=== PATIENT | female | born 1960 | race Caucasian/White ===

== ENCOUNTER → 2019-02-12 | Outpatient (CLI) | payer BC ==
[2019-02-13 10:23] LABS: APPEARANCE, URINE HAZY (CLEAR); BACTERIA, URINE AUTO NEGATIVE (NEGATIVE); BILIRUBIN, URINE AUTO NEGATIVE (NEGATIVE); BLOOD, URINE BLOOD NEGATIVE (NEGATIVE); COLOR, URINE YELLOW (YELLOW); GLUCOSE, URINE (UA) AUTO NEGATIVE (NEGATIVE); KETONE, URINE AUTO NEGATIVE (NEGATIVE); LEUKOCYTE ESTERASE, URINE AUTO NEGATIVE (NEGATIVE); MUCUS, URINE SMALL (NEGATIVE); NITRITE, URINE AUTO NEGATIVE (NEGATIVE); PROTEIN, URINE AUTO NEGATIVE (NEGATIVE); RBC, URINE AUTO 0 /HPF (0-3); SPECIFIC GRAVITY URINE AUTO 1.018 (1.002-1.035); SQUAMOUS EPITHELIAL CELL UR AU 0 /HPF (0-6); UROBILINOGEN, URINE AUTO 0.2 mg/dL (0.0-2.0); WBC, URINE AUTO 2 /HPF (0-3)
[2019-02-13 10:23] LABS: GLOMERULAR FILTRATION RATE > 60.0 (>45)
[2019-02-13 11:01] LABS: MALB URINE SIEMENS 15.8 MG/L; MAU/CREAT RATIO 8.1 MCG/MG (0.0-30.0)
[2019-02-13 17:12] LABS: CREATININE CLEARANCE, URINE 90.6 ML/MIN (75-115); CREATININE, SERUM 0.9 MG/DL (0.6-1.0); CREATININE, URINE 67.1 MG/DL; TOTAL PROTEIN 24 HOUR URINE 138.2 MG/24HR (50-150); URINE TOTAL PROTEIN 7.9 MG/DL (0-12)
== END ==
LOC: M SMT 13:20
PROVIDERS: ATTEND Internal Medicine Nephrology
DX: Z00.5 Encounter for examination of potential donor of organ and tissue (principal)

== ENCOUNTER → 2019-09-08 | Outpatient (CLI) | payer BC ==
--- NOTE | 2019-09-08 08:32 | REP ---
Clinical: Follow up abnormal lung findings. Technique: Axial noncontrast images from the thoracic inlet to the upper abdomen with coronal and sagittal re-formations. Comparison: 05/28/2019. Findings: Areas of consolidation involving the right middle lobe and lingula with mild chronic-appearing linear stranding and bronchiectasis with inspissated material leading up to the consolidations is most compatible with chronic atelectasis due to mucous plugging. Remainder of lung ugarte are clear and no further acute process is appreciated. No effusion. No pneumothorax. No significant adenopathy. Mediastinum demonstrates normal thoracic aorta, pulmonary vasculature and heart/pericardium. Surrounding musculoskeletal structures are intact. Limited upper abdomen demonstrates normal bilateral adrenal glands along with cholelithiasis. Impression: 1. Areas of consolidation with associated changes as described above most compatible with chronic atelectasis due to mucous plugging. Correlation with physical examination and follow-up examination in 6-9 months may be warranted. Electronically Signed by Manuel Zimmerman MD 09/08/2019 08:24 A
== END ==
LOC: M RAD 07:29
PROVIDERS: ATTEND Internal Medicine Pulmonary Disease
DX: R91.8 Other nonspecific abnormal finding of lung field (principal)

== ENCOUNTER 2019-09-16 06:01 | Day surgery (SDC) | payer BC ==
[~2019-09-16] VITALS: Ht 157.5 cm; Wt 76.1 kg
[~2019-09-16 06:01] MED LIST: LR 1,000 ML IV ONE
[2019-09-16] MEDS ORDERED: fentaNYL 100 MCG/2 ML INJECTION (J3010) As Ordered ONE (07:13)
[2019-09-16] MEDS ORDERED: LIDOCAINE 2% INJ 100 MG/5 ML SDV (FOR ANES.) As Ordered ONE (07:13)
[2019-09-16] MEDS ORDERED: propofoL 200 MG/20 ML VIAL As Ordered ONE (07:13)
[2019-09-16] MEDS ORDERED: LIDOCAINE 1% MDV 20ML VIAL As Ordered ONE (07:13)
[2019-09-16] MEDS ORDERED: MIDAZOLAM INJ 2 MG/2 ML VIAL (J2250) As Ordered ONE (07:13)
[2019-09-16] MEDS ORDERED: THROMBIN SOLN 5,000 UNITS VIAL As Ordered ONE (07:13)
[2019-09-16] MEDS ORDERED: ROCURONIUM BROMIDE 50 MG/5 ML VIAL As Ordered ONE (07:13)
[2019-09-16] MEDS ORDERED: EPINEPHrine 1MG/10ML SYRINGE 1.5IN As Ordered ONE (07:13)
[2019-09-16] MEDS ORDERED: LIDOCAINE VISCOUS 2% SOLN 15ML UDC As Ordered ONE (07:14)
[2019-09-16] MEDS ORDERED: CETACAINE SPRAY 5GM As Ordered ONE ×2 (07:16→08:39)
[2019-09-16] MEDS ORDERED: dexameTHASONE 4 MG/ML 1ML VIAL (J1100) As Ordered ONE (07:44)
[2019-09-16] MEDS ORDERED: METOCLOPRAMIDE INJ 10MG/2ML VIAL (J2765) As Ordered ONE (07:55)
[2019-09-16] MEDS ORDERED: ONDANSETRON 4MG/2ML VIAL (J2405) As Ordered ONE (07:55)
[2019-09-16] MEDS ORDERED: GLYCOPYRROLATE INJ 0.2 MG/ML 2 ML VIAL As Ordered ONE (08:31)
[2019-09-16] MEDS ORDERED: NEOSTIGMINE 10 MG/10 ML VIAL (J2710) As Ordered ONE (08:31)
[2019-09-16] MEDS ORDERED: LR 1,000 ML IV SCH (09:30)
[2019-09-16] MEDS ORDERED: ONDANSETRON 4MG/2ML VIAL (J2405) IV PRN (09:30)
[2019-09-16] MEDS ORDERED: METOCLOPRAMIDE INJ 10MG/2ML VIAL (J2765) IV PRN (09:30)
[2019-09-16] MEDS ORDERED: fentaNYL 100 MCG/2 ML INJECTION (J3010) IV PRN (09:30)
--- NOTE | 2019-09-16 09:51 | ROOR ---
Patient Name: Domi Jalloh Procedure Date: 09/16/2019 7:26 AM Date of : 1960 Admit Type: Outpatient Age: 59 Note Status: Finalized Attending MD: Araceli Acosta MD Procedure: Bronchoscopy Indications: Suspicious left upper lobe lesion, Suspicious right middle lobe lesion Providers: Araceli Acosta MD (Doctor) Referring MD: 1. No Referring Physician 1. No Referring Physician, Admin. (Referring MD) Requesting Physician: Medicines: General Anesthesia, Epinephrine 1 mg/10 mL topical 1 mL, Cetacaine topical Complications: Moderate bleeding Procedure: Pre-Anesthesia Assessment: - Prior to the procedure, a History and Physical was performed, and patient medications and allergies were reviewed. The patient's tolerance of previous anesthesia was also reviewed. The risks and benefits of the procedure and the sedation options and risks were discussed with the patient. All questions were answered, and informed consent was obtained. Prior Anticoagulants: The patient has taken no previous anticoagulant or antiplatelet agents. ASA Grade Assessment: II - A patient with mild systemic disease. After reviewing the risks and benefits, the patient was deemed in satisfactory condition to undergo the procedure. The Bronchoscope was introduced through the mouth, via the endotracheal tube (the patient was intubated for the procedure) and advanced to the tracheobronchial tree of both lungs. The procedure was accomplished without difficulty. The patient tolerated the procedure well. Findings: The endotracheal tube is in good position. The visualized portion of the trachea is of normal caliber. The elena is sharp. The tracheobronchial tree was examined to at least the first subsegmental level. Bronchial anatomy and mucosa was normal; there are no endobronchial lesions noted. There were thick white mucoid secretions noted throughout the bronchial tree on right and left. Electromagnetic navigation bronchoscopy utilizing the PEVESA system with iLogic upgrade was performed. The CT scan was used for planning purposes. A virtual bronchoscopic image was generated using the planning software and the elena, left main bronchus elena, left lower lobe basilar segment, right upper lobe, right middle lobe and right lower lobe basilar segment registration points were marked on the virtual image. The targets in the medial segment of the right middle lobe and in the superior lingula segment of the left upper lobe were marked. An area of infiltration was found and a pathway was created. After a complete airway exam, the locatable guide/extended working channel was inserted and an automatic registration was performed by advancing the scope through the elena, left main bronchus elena, left lower lobe basilar segment, right upper lobe, right middle lobe and right lower lobe basilar segment. The navigation phase was then begun to locate the target lesion(s). Positioning centrally (in relation to the lesion) was confirmed using the Olympus radial probe US catheter. The locatable guide was removed from the extended working channel. Fluoroscopy guided transbronchial brushings of an area of infiltration were obtained in the medial segment of the right middle lobe with a needle brush and sent for routine cytology. Transbronchial brushing technique was selected because the sampling site was not visible endoscopically. Transbronchial needle aspirations of an area of infiltration were performed in the medial segment of the right middle lobe GenCut and sent for routine cytology. The procedure was guided by fluoroscopy. Transbronchial needle aspiration technique was selected because the sampling site was not visible endoscopically. Transbronchial biopsies of an area of infiltration were performed in the medial segment of the right middle lobe using forceps and sent for histopathology examination. The procedure was guided by fluoroscopy. Transbronchial biopsy technique was selected because the sampling site was not visible endoscopically. Transbronchial needle aspirations of an area of infiltration were performed in the superior lingula segment of the left upper lobe GenCut and sent for routine cytology. The procedure was guided by fluoroscopy. Transbronchial needle aspiration technique was selected because the sampling site was not visible endoscopically. Transbronchial biopsies of an area of infiltration were performed in the superior lingula segment of the left upper lobe using forceps and sent for histopathology examination. The procedure was guided by fluoroscopy. Transbronchial biopsy technique was selected because the sampling site was not visible endoscopically. Bronchoalveolar lavage was performed in the RML medial segment (B5) of the lung and sent for cell count, bacterial culture, viral smears & culture, and fungal & AFB analysis and cytology. The return was blood-tinged and cloudy. Mucous plugs were present in the return fluid. Bronchoalveolar lavage was performed in the YOUNG superior lingular segment (B4) of the lung and sent for cell count, bacterial culture, viral smears & culture, and fungal & AFB analysis and cytology. The return was bloody. Bronchoalveolar lavage was performed in the LLL superior segment (B6) of the lung and sent for bacterial, AFB and fungal analysis. The return was clear. Bronchoalveolar lavage was performed in the RLL superior segment (B6) of the lung and sent for bacterial, AFB and fungal analysis. The return was cloudy. Impression: - Suspicious left upper lobe lesion - Suspicious right middle lobe lesion - The airway examination was normal except for thick white mucoid secretions noted in right and left airways - Electromagnetic navigation bronchoscopy was performed. - Transbronchial brushings were obtained in RML - A transbronchial needle aspiration was performed in RML - Transbronchial lung biopsies were performed in RML - A transbronchial needle aspiration was performed in YOUNG lingula - Transbronchial lung biopsies were performed in YOUNG lingula - Bronchoalveolar lavage was performed in RML - Bronchoalveolar lavage was performed YOUNG - Bronchoalveolar lavage was performed RLL - Bronchoalveolar lavage was performed LLL Recommendation: - Follow up with bronchoscopist as previously scheduled. - Chest X-ray post-procedure. Attending Participation: I personally performed the entire procedure. Araceli Acosta MD 09/16/2019 9:51:41 AM Number of Addenda: 0 Note Initiated On: 09/16/2019 7:26 AM
--- NOTE | 2019-09-16 10:01 | REP ---
PORTABLE CHEST X-RAY: Single view. HISTORY: Postop. COMPARISON CHEST X-RAY: May 07, 2019. Comparison chest CT study September 08, 2019. FINDINGS: There is a new moderate size lingular area of consolidation/hemorrhage. There is some infiltrate in the left upper lobe in the apex as well. Increased markings are again noted in the distribution of the right middle lobe as seen on CT study. IMPRESSION: Lingular and left upper lobe infiltrates, new from prior CT study. Right middle lobe opacity again seen. No pneumothorax seen. Electronically Signed by Casimiro Carranza MD 09/16/2019 07:27 P
[2019-09-16 10:45] VITALS: BP 111/61
[2019-09-16 13:05] LABS: COLOR PINK (COLORLESS); SOURCE RIGHT MIDDLE LOBE
[2019-09-16 13:06] LABS: APPEARANCE HAZY (CLEAR)
[2019-09-16 13:34] LABS: APPEARANCE CLOUDY (CLEAR); COLOR RED (COLORLESS); SOURCE LEFT UPPER LOBE
[2019-09-16 14:57] LABS: MONOCYTES/MACROPHAGES, BAL 36 %
[2019-09-16 14:58] LABS: MONOCYTES/MACROPHAGES, BAL 33 %
== END 2019-09-16 10:55 | disposition home or self-care (01) ==
LOC: M SDC 06:01
PROVIDERS: ATTEND Internal Medicine Pulmonary Disease
DX: R91.8 Other nonspecific abnormal finding of lung field (principal)
CPT/HCPCS: 31623; 31624; 31627; 31628; 31629; 71045; 76000; 87070; 87102; 87116; 87205; 87206; 88104; 88108; 88173; 88305; 88312; 88313; 88342; 89051; J1100; J2250; J2405; J2710; J2765; J3010

== ENCOUNTER → 2019-09-18 | Outpatient (CLI) | payer BC ==
--- NOTE | 2019-09-18 13:27 | REP ---
PA and lateral chest: Comparison is 09/16/2019. The infiltrates in the left upper lobe and lingula have significantly decreased, although slight residual persists. There is a tiny left pleural effusion. The right lung is clear. Cardiac size normal. The brenda, mediastinum, skeletal structures are unremarkable. Impression: Significant improvement in the left upper lobe and lingular infiltrates. Small residual persists. There is a small left pleural effusion. Electronically Signed by Ozzie Tubbs MD 09/18/2019 01:18 P
== END ==
LOC: M RAD 12:58
PROVIDERS: ATTEND Internal Medicine Pulmonary Disease
DX: R91.8 Other nonspecific abnormal finding of lung field (principal)

== ENCOUNTER → 2020-05-05 | Outpatient (CLI) | payer BC | LOC: M LAB 09:14 | PROVIDERS: ATTEND Internal Medicine Nephrology | DX: Z00.5 Encounter for examination of potential donor of organ and tissue (principal) ==

== ENCOUNTER → 2020-09-26 | Outpatient (CLI) | payer BC ==
--- NOTE | 2020-09-26 11:42 | REP ---
INDICATION: OTHER NONSPECIFIC ABNORMAL FINDING OF LUNG FIELD COMPARISON: 09/08/2019. TECHNIQUE: Axial noncontrast images from the thoracic inlet to the upper abdomen with coronal and sagittal reformations. This CT examination was performed using the following dose reduction techniques: Automated exposure control, adjustment of mA and/or kv according to the patient's size, and use of iterative reconstruction technique. FINDINGS: Chronic bronchiectasis, linear scarring, and ill-defined areas of opacity identified in the right middle lobe and lingula remain stable. Remainder of the lung ugarte are well aerated and clear. No new consolidation, suspicious nodule or mass lesion. No pleural effusion. No pneumothorax. Tracheobronchial tree is patent. No obvious adenopathy. Further evaluation of the mediastinum demonstrates normal thoracic aorta, pulmonary vasculature, and heart/pericardium. Surrounding musculoskeletal structures without acute osseous abnormality. Limited upper abdomen demonstrates normal bilateral adrenal glands. IMPRESSION: 1. Chronic changes extending into the right middle lobe and lingula similar to prior examination. 2. No new acute mediastinal or pleuroparenchymal process appreciated. <Electronically signed by Manuel Zimmerman > 09/26/20 [id number]
== END ==
LOC: M RAD 11:09
PROVIDERS: ATTEND Internal Medicine Pulmonary Disease
DX: R91.8 Other nonspecific abnormal finding of lung field (principal)

== ENCOUNTER → 2021-06-26 | Outpatient (CLI) | payer BC ==
--- NOTE | 2021-06-26 12:46 | REPMRS ---
Patient History The patient states she had a clinical breast exam in March 2021. Patient is postmenopausal. Family history of breast cancer in sister, unknown cancer in daughter. Patient states no breast complaints today. Patient has signed MRS History Sheet. Digital Woman Screen Mammo: June 26, 2021 - Exam #: [id number] Bilateral CC and MLO view(s) were taken. Technologist: Estelle Dixon, Technologist Prior study comparison: December 03, 2012, digital woman screen mammo performed at [facility] [place]. January 11, 2011, bilateral bilat screen digital mammo performed at [facility] [place]. FINDINGS: The breast tissue is almost entirely fat. Screening. Digital screening (2D) mammography was performed bilaterally in the CC and MLO projections. Additionally, breast tomosynthesis (3D mammography) was performed bilaterally in the CC and MLO projections. Todays exam was compared to the prior exam/exams. By history, the patient has no complaints of a palpable breast abnormality or other significant breast complaints. The Volpara volumetric breast density category is A, the breasts are almost entirely fatty. The breasts are unchanged in size and shape. There are no brad-soft tissue densities or spiculated masses. There is no internal architectural distortion. There are no suspicious brad-calcific clusters. Skin thickening or nipple retraction is not present. IMPRESSION: BI-RADS Category 2- Benign Findings. There is no evidence of malignant alteration of the breasts. Followup examination recommended in one year. This mammogram was read with the assistance of [facility] [place][note 2] [email or web address],an FDA approved computer aided detection system for mammography. The lifetime Tyrer-Cuzick score is 10.6% Negative x-ray reports should not delay surgical consultation if a dominant or clinically suspicious mass is present. Not all breast cancers can be identified by mammography. Therefore, we recommend that you continue to perform regular breast self-examination and physical examination and then promptly contact your physician of any concerns or changes. Adenosis and dense breasts may obscure an underlying neoplasm. No significant changes when compared with prior studies. Assessment: BI-RADS/ACR category 2 mammogram. Benign Findings. Recommendation Routine screening mammogram of both breasts in 1 year. Electronically Signed By: Carlos Eduardo Arriaza MD 06/26/21 [id number]
== END ==
LOC: M WHC 10:55
PROVIDERS: ATTEND Registered Nurse
DX: Z12.31 Encounter for screening mammogram for malignant neoplasm of breast (principal)

== ENCOUNTER → 2022-07-09 | Outpatient (CLI) | payer BC | LOC: M WHC 08:16 | PROVIDERS: ATTEND Registered Nurse | DX: Z12.31 Encounter for screening mammogram for malignant neoplasm of breast (principal) ==

== ENCOUNTER → 2022-09-24 | Outpatient (REF) | LOC: M EMP 08:40 | PROVIDERS: ATTEND Family Medicine | DX: Z11.52 Encounter for screening for COVID-19 (principal) ==

== ENCOUNTER → 2023-07-19 | Outpatient (CLI) | payer MEDICARE, OTHER ==
[2023-07-19 14:44] LABS: HEMATOCRIT 38.3 % (36.0-47.0); HEMOGLOBIN 12.8 g/dl (12.0-15.5); MEAN CORPUSCULAR HGB CONC 33.4 g/dl (32.0-36.5); MEAN CORPUSCULAR VOLUME 86.7 fl (80.0-96.0); PLATELET COUNT, AUTOMATED 348 10^3/uL (150-450); RED BLOOD COUNT 4.42 10^6/uL (4.00-5.40); WHITE BLOOD COUNT 6.1 10^3/uL (4.0-10.0)
[2023-07-19 15:18] LABS: ALBUMIN 3.9 G/DL (3.2-5.2); ALKALINE PHOSPHATASE 54 U/L (46-116); ALT/SGPT 33 U/L (7.0-40); AST/SGOT 21 U/L (<34); BILIRUBIN,TOTAL 0.6 MG/DL (0.3-1.2); BLOOD UREA NITROGEN 14 MG/DL (9-23); CALCIUM LEVEL 8.8 MG/DL (8.3-10.6); CARBON DIOXIDE LEVEL 26 MMOL/L (20-31); CHLORIDE LEVEL 107 MMOL/L (98-107); CHOLESTEROL LEVEL 222 MG/DL (<200); CHOLESTEROL RISK RATIO 3.48 (<5); CREATININE FOR GFR 0.66 MG/DL (0.55-1.30); GLOMERULAR FILTRATION RATE > 60.0 (>45); GLUCOSE, FASTING 116 MG/DL (74-106); HDL CHOLESTEROL 63.7 MG/DL (>40); LDL CHOLESTEROL 133.5 MG/DL (<100); NON-HDL-C 158.3 MG/DL; POTASSIUM SERUM 4.1 MMOL/L (3.5-5.1); SODIUM LEVEL 141 MMOL/L (136-145); TOTAL PROTEIN 6.9 G/DL (5.7-8.2); TRIGLYCERIDES LEVEL 124 MG/DL (<150)
== END ==
LOC: M WUC 12:50
PROVIDERS: ATTEND Registered Nurse
DX: Z00.00 Encounter for general adult medical examination without abnormal findings (principal); Z13.220 Encounter for screening for lipoid disorders; E78.00 Pure hypercholesterolemia, unspecified

== ENCOUNTER → 2023-09-10 | Outpatient (CLI) | payer MEDICARE | LOC: M WHC 07:59 | PROVIDERS: ATTEND Registered Nurse | DX: Z12.31 Encounter for screening mammogram for malignant neoplasm of breast (principal); M81.0 Age-related osteoporosis without current pathological fracture ==

== ENCOUNTER → 2024-03-31 | Outpatient (CLI) | payer MEDICARE ==
[2024-03-31 12:59] LABS: BLOOD UREA NITROGEN 14 MG/DL (9-23); CALCIUM LEVEL 8.8 MG/DL (8.3-10.6); CARBON DIOXIDE LEVEL 30 MMOL/L (20-31); CHLORIDE LEVEL 107 MMOL/L (98-107); CHOLESTEROL LEVEL 230 MG/DL (<200); CHOLESTEROL RISK RATIO 3.46 (<5); CREATININE FOR GFR 0.81 MG/DL (0.55-1.30); GLOMERULAR FILTRATION RATE > 60.0 (>45); GLUCOSE, FASTING 102 MG/DL (74-106); HDL CHOLESTEROL 66.3 MG/DL (>40); LDL CHOLESTEROL 146.5 MG/DL (<100); NON-HDL-C 163.7 MG/DL; SODIUM LEVEL 141 MMOL/L (136-145); TRIGLYCERIDES LEVEL 86 MG/DL (<150)
== END ==
LOC: M WUC 09:23
PROVIDERS: ATTEND Registered Nurse
DX: R73.01 Impaired fasting glucose (principal); E78.00 Pure hypercholesterolemia, unspecified

== ENCOUNTER → 2024-11-27 | Outpatient (CLI) | payer MEDICARE | LOC: M WHC 12:36 | PROVIDERS: ATTEND Registered Nurse | DX: Z12.31 Encounter for screening mammogram for malignant neoplasm of breast (principal); R92.313 Mammographic fatty tissue density, bilateral breasts ==

== ENCOUNTER 2025-02-05 11:37 | Emergency (ER) | payer MEDICARE ==
[~2025-02-05] VITALS: Ht 157.5 cm; Wt 74.8 kg
[2025-02-05] MEDS ORDERED: VALA1TAB5 (12:07)
[2025-02-05] MEDS ORDERED: GABA-1172 (12:07)
[2025-02-05] MEDS ORDERED: ROSU5TAB49 (12:07)
[2025-02-05 12:47] LABS: BASO # 0.0 10^3/uL (0.0-0.2); BASO % 0.5 % (0.0-1.0); EOS # 0.2 10^3/uL (0.0-0.5); EOS % 3.5 % (0.0-3.0); LYMPH # 1.0 10^3/uL (1.5-5.0); LYMPH % 14.5 % (24.0-44.0); MONO # 0.5 10^3/uL (0.0-0.8); MONO % 8.0 % (2.0-8.0); NEUTROPHILS # 4.8 10^3/uL (1.5-8.5); NEUTROPHILS % 73.2 % (36.0-66.0); PLATELET COUNT, AUTOMATED 376 10^3/uL (150-450)
[2025-02-05 13:08] LABS: ERYTHROCYTE SEDIMENTATION RATE 62 mm/hr (0-30)
[2025-02-05] MEDS: KETOROLAC 30 MG/ML 1 ML VIAL IV ONE (14:09)
[2025-02-05 14:25] LABS: KETONE, URINE AUTO RFX NEGATIVE (NEGATIVE); MUCUS, URINE RFX SMALL (NEGATIVE); NITRITE, URINE AUTO RFX NEGATIVE (NEGATIVE); RBC, URINE AUTO RFX 3 /HPF (0-3); SQUAM EPITHELIAL CELL UR AURFX 3 /HPF (0-6); WBC, URINE AUTO RFX 6 /HPF (0-3)
[2025-02-05 14:26] LABS: LEUKOCYTE ESTERASE UR AUTO RFX 3+ (NEGATIVE)
[2025-02-05 15:52] VITALS: TEMP 97.6
[2025-02-05] MEDS: ACETAMINOPHEN *IV* 1,000 MG in IV 1 EA IV ONE (16:41)
[2025-02-05] MEDS: cefTRIAXone SOD 1 GM in DEXTROSE 5% (D5W) ADV/MINI-BAG 50 ML IV ONE (16:41)
[2025-02-05] MEDS: diphenhydrAMINE 50 MG/ML VIAL IV STA (16:41)
[2025-02-05] MEDS: FAMOTIDINE 20 MG/2 ML VIAL IVP ONE (16:41)
[2025-02-05 18:48] VITALS: BP 166/89; O2SAT 98
[2025-02-05] MEDS ORDERED: CEFD300C PO (18:53)
[2025-02-05] MEDS ORDERED: MIRA3350 PO (18:53)
[2025-02-09 20:02] LABS: LYME TOTAL ANTIBODY CIA 4.66 Index (<=0.90)
[2025-02-09 23:57] LABS: LYME AB IGG BY CIA 6.68 Index (<=0.90); LYME AB IGM BY CIA 5.23 Index (<=0.90)
== END 2025-02-05 19:17 | disposition home or self-care (01) ==
LOC: M ED 11:37
DX: N39.0 Urinary tract infection, site not specified (principal); R21 Rash and other nonspecific skin eruption; K59.00 Constipation, unspecified; K80.20 Calculus of gallbladder without cholecystitis without obstruction; E78.5 Hyperlipidemia, unspecified; Z79.2 Long term (current) use of antibiotics; Z79.899 Other long term (current) drug therapy
CPT/HCPCS: 74176; 80047; 81001; 83605; 85025; 85652; 86140; 86618; 87040; 87086; 87486; 87581; 87633; 87798; 96365; 96375; 99284; J0131; J0696; J1200; J1308; J1885

== ENCOUNTER → 2025-07-13 | Outpatient (CLI) | payer MEDICARE ==
[~2025-07-13] MED LIST changes: +CEFD300C PO; +GABA-1172; -LR 1,000 ML IV ONE; +MIRA3350 PO; +ROSU5TAB49; +VALA1TAB5
[2025-07-13 18:21] LABS: ALT/SGPT 32.0 U/L (7.0-40); AST/SGOT 28.0 U/L (<34); CALCIUM LEVEL 8.9 MG/DL (8.3-10.6); CARBON DIOXIDE LEVEL 28.0 MMOL/L (20-31); CHLORIDE LEVEL 106.0 MMOL/L (98-107); CHOLESTEROL LEVEL 150.0 MG/DL (<200); CHOLESTEROL RISK RATIO 2.1 (<5); CREATININE FOR GFR 0.76 MG/DL (0.55-1.30); GLOMERULAR FILTRATION RATE 85.8 (>45); LDL CHOLESTEROL 67.5 MG/DL (<100); NON-HDL-C 78.9 MG/DL; POTASSIUM SERUM 4.2 MMOL/L (3.5-5.1); SODIUM LEVEL 143.0 MMOL/L (136-145); TRIGLYCERIDES LEVEL 57.0 MG/DL (<150)
[2025-07-13 18:32] LABS: PLATELET COUNT, AUTOMATED 326 10^3/uL (150-450)
== END ==
LOC: M WUC 13:05
PROVIDERS: ATTEND Registered Nurse
DX: Z51.81 Encounter for therapeutic drug level monitoring (principal); Z79.899 Other long term (current) drug therapy; E78.00 Pure hypercholesterolemia, unspecified